=== PATIENT | female | born 1995 | race Two or more races ===

== ENCOUNTER → 2020-06-30 | Outpatient (CLI) | payer OTHER ==
--- NOTE | 2020-06-30 16:02 | KCIC ---
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 Instructions: / History: . COMPARISON STUDY: None. FINDINGS: Lungs: Normal lung volume. No pulmonary mass or consolidation. The tracheobronchial tree and hilar structures are normal. Pleura: No pleural effusion or pneumothorax. Heart and Mediastinum: The cardiomediastinal silhouette is normal. The great vessels of the thorax are normal. Bones and Soft Tissues: The bones and soft tissues are within normal limits. IMPRESSION: No acute cardiopulmonary process. Electronically signed by: Todd Morales MD (06/30/2020 3:59 PM) [id number]
== END ==
LOC: KCIC 11:43
PROVIDERS: ATTEND Family Medicine
DX: R76.11 Nonspecific reaction to tuberculin skin test without active tuberculosis (principal)
CPT/HCPCS: 71045

== ENCOUNTER → 2020-10-26 | Outpatient (CLI) | payer OTHER ==
[~2020-10-26] MED LIST: OXYC-325 PO; PROM25TA10 PO; VENTOLIN HFA18 GM INH; flovent PO
--- NOTE | 2020-10-27 10:58 | NUR ---
Patient swabbed for covid again on 10/26/20. After the swab, the patient told us she tested positive for covid in Aug 2020 with mild symptoms. Patient states the results came from [facility]. Faxed a request for the report on 10/26. No report has come yet. Left a message at the [facility] for results.
== END ==
LOC: LAB 11:10 → MERGE 12:26
PROVIDERS: ATTEND Orthopaedic Surgery
DX: Z01.812 Encounter for preprocedural laboratory examination (principal); U07.1 COVID-19; G56.00 Carpal tunnel syndrome, unspecified upper limb
CPT/HCPCS: U0003

== ENCOUNTER 2020-10-29 06:09 | Day surgery (SDC) | payer OTHER ==
--- NOTE | 2020-10-28 18:59 | PDOC1 ---
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 She has bilateral wrist pain and hand numbness right greater than left. She describes an onset of numbness and tingling in her hands 3 to 4 months ago when she woke up with spontaneous numbness symptoms like her arm was asleep. Symptoms have progressed and are worse with activity such as driving and she still has the nighttime symptoms. She did not have symptoms when she was . She is tried bilateral wrist splints that only helped a little bit. An EMG confirms carpal tunnel syndrome. Past Medical History Pulmonary: Asthma Past Surgical History Past Surgical History: Cholecystectomy Family History Family History: Diabetes, Heart Disease Social History Smoke: No ALCOHOL: occassional Current Medications Current Medications Current Medications Fentanyl Citrate (Fentanyl 2ml Vial) 25 mcg PRN Q5MIN PRN IVP MILD PAIN 1-3; Start 10/29/20 at 06:00; Stop 10/30/20 at 05:59 Fentanyl Citrate (Fentanyl 2ml Vial) 50 mcg PRN Q5MIN PRN IVP MODERATE PAIN 4- 6; Start 10/29/20 at 06:00; Stop 10/30/20 at 05:59 Morphine Sulfate (Morphine Sulfate) 1 mg PRN Q10MIN PRN IVP SEVERE PAIN 7-10; Start 10/29/20 at 06:00; Stop 10/30/20 at 05:59 Ringer's Solution 1,000 ml @ 30 mls/hr Q24H IV ; Start 10/29/20 at 06:00; Stop 10/29/20 at 17:59 Hydromorphone HCl (Dilaudid) 0.5 mg PRN Q10MIN PRN IVP SEVERE PAIN 7-10, 2nd CHOICE; Start 10/29/20 at 06:00; Stop 10/30/20 at 05:59 Prochlorperazine Edisylate (Compazine) 5 mg PACU PRN PRN IVP NAUSEA, MRX1; Start 10/29/20 at 06:00; Stop 10/30/20 at 05:59 Cefazolin Sodium/ Dextrose 50 ml @ 100 mls/hr 1X PREOP PRN IV PRIOR TO PROCEDURE; Start 10/29/20 at 06:00; Stop 10/29/20 at 18:00 Active Scripts Active Reported [flovent] 1 Inh PO PRN BID PRN Ventolin Hfa Inhaler (Albuterol Sulfate) 18 Gm Hfa.aer.ad 2 Puff INH PRN Q4-6HRS PRN Allergies Allergies: Coded Allergies: diphenhydramine (Verified Adverse Reaction, Intermediate, 10/28/20) hypotension hydrocodone (Verified Adverse Reaction, Intermediate, 10/28/20) hallucinations Physical Exam General: Alert, Cooperative HEENT: Atraumatic Lungs: Normal air movement Heart: RRR Abdomen: Soft Extremities: No cyanosis, Normal pulses, Other (The overall alignment of the RIGHT hand is normal. There are no masses. Minimal tenderness except over the median nerve. Light touch sensation is decreased in the thumb index and long finger. Traveling Storekeeper strength is intact for motor strength but subjectively slightly weakened. There is no thenar atrophy. Pulses intact. Phalen's positive. Tinel's positive. Tinel's at the elbow is negative.) Skin: No significant lesion Neuro: Sensation intact Images Images Bilateral upper extremity EMG obtained and personally reviewed. Right median nerve sensory latency 5.4 (normal < 3.8). Right median nerve motor latency 5.8 (normal < 4.5). Left median nerve sensory latency 4.5 (normal < 3.8). Left median nerve motor latency 5.1 (normal < 4.5). VTE Prophylaxis Ordered VTE Prophylaxis Devices: Yes VTE Pharmacological Prophylaxi: No Assessment/Plan Assessment/Plan Her described symptoms and exam correlate with bilateral carpal tunnel syndrome, correlated with her EMG results. We discussed the natural history of the condition as well as the risks, benefits, and alternatives to treatment. Given her failure of more conservative measures with continued symptoms, my recommendation is surgery. Plan for staged, right before left, carpal tunnel release. We discussed the potential risks of infection, neurovascular injury, bleeding, or other potential surgical or anesthetic complications. We also discussed postoperative treatment and expectations, including possible time off work to help with her recovery and minimize risks of infection. All of her questions were answered and she desires to proceed with surgery. She is here to day for elective right carpal tunnel release, presumably under a regional anesthetic. Justifications for Admission Other Justification LAW WALSH MD Oct 28, 2020 18:59
[~2020-10-29] VITALS: Ht 165.1 cm; Wt 93.9 kg
[~2020-10-29 06:09] MED LIST changes: +HYDROmorphone 2 MG/ML VIAL IVP PRN; -OXYC-325 PO; +PROCHLORPERAZINE 10 MG/2 ML VIAL. IVP PRN; -PROM25TA10 PO; +fentaNYL PF VIAL 100 MCG/2 ML VIAL IVP PRN
[2020-10-29] MEDS ORDERED: ONDANSETRON PF 4 MG/2 ML VIAL. ONE (06:37)
[2020-10-29] MEDS ORDERED: LIDOCAINE 2% PF 5 ML VIAL. ONE (06:37)
[2020-10-29] MEDS ORDERED: PROPOFOL 10 MG/ML (20ML) VIAL. IV ONE (06:37)
[2020-10-29] MEDS ORDERED: LIDOCAINE 1% PF 30 ML VIAL. ONE (06:39)
[2020-10-29] MEDS: IV RINGERS,LACTATED 1000ML 1,000 ML IV SCH ×2 (06:51→09:53)
[2020-10-29] MEDS ORDERED: BUPIVACAINE-EPI 0.25% 30 ML VIAL KIT. ONE (07:18)
[2020-10-29] MEDS ORDERED: MIDAZOLAM HCL/PF 2 MG/2 ML VIAL. ONE (07:21)
[2020-10-29] MEDS ORDERED: fentaNYL PF VIAL 100 MCG/2 ML VIAL ONE ×2 (07:21→09:13)
--- NOTE | 2020-10-29 08:20 | PDOC4 ---
Operative Note Operative Note DATE: October 29, 2020 PREOPERATIVE DIAGNOSIS Carpal tunnel syndrome, right upper limb G56.01 POSTOPERATIVE DIAGNOSIS: Carpal tunnel syndrome, right upper limb G56.01 PROCEDURES PERFORMED: right wrist, open carpal tunnel release (neuroplasty of the median nerve at the carpal tunnel, CPT 76321 SURGEON: Law Burton MD COMMISSION BROKER: JONI Stratton ANESTHESIA: General ESTIMATED BLOOD LOSS: 10 mL SPECIMENS: none DRAINS: none COMPLICATIONS: none TOURNIQUET: 6 minutes at 250 mm Hg INDICATIONS FOR PROCEDURE: The patient is a 25-year-old with right hand pain and numbness. EMG confirms carpal tunnel syndrome. The patient and I discussed carpal tunnel release surgery along with the potential risks of infection, neurovascular injury, bleeding, persistent or recurrent carpal tunnel syndrome, wound healing problems, or other surgical or anesthetic complications. All of the patients questions about surgery were answered and they desired to proceed. Written consent was obtained. DESCRIPTION OF OPERATION: The patient was identified in the preoperative holding area. The correct right hand was marked by me. The patient was taken to the operating room and positioned supine on the operating table with the right arm extended on an arm board. A tourniquet was placed on the upper right arm. Preoperative antibiotics were given intravenously. A timeout procedure was performed. The limb was prepared in sterile fashion with ChloraPrep solution and sterile drapes were applied. An Esmarch bandage was used to exsanguinate the limb and the tourniquet was inflated to 250 mmHg. A curvilinear incision was made with a 15 blade scalpel, 2mm ulnar to the thenar crease, using landmarks including the thenar crease, Kaplans cardinal line, the ulnar border of the fingernail of the ring finger, the wrist flexion crease, and the palmaris longus tendon. Care was made not to extend this incision beyond Kaplans cardinal line, so as to avoid arterial injury. Loupe magnification (3.5x extended field) was used throughout to prevent neurovascular injury. Sharp dissection was used through the subcutaneous tissues, and the palmaris longus tendon was retracted toward the thumb. Bipolar electrocautery was used for hemostasis. The transverse carpal ligament was identified and was divided u nder direct vision proximally and distally. Scissor dissection was used proximal to the wrist flexion crease to complete the proximal release of the transverse carpal ligament with the skin elevated away from the dissection. Digital palpation was used proximally and distally, ensuring a complete release. A gentle scissor neuroplasty was now performed along the ulnar aspect of the m edian nerve, releasing dense adhesions and dense synovium. The right median nerve was slightly thinned. Care was made not to injure the motor branch on the radial aspect. Copious saline irrigation was used. The tourniquet was released. Bipolar electrocautery was used for hemostasis. The skin edges were injected with 0.25% bupivacaine with epinephrine. The skin edges were reapproximated with 3-0 Prolene horizontal mattress sutures by my housekeeper/laundry assistant. Needle and sponge counts were correct. Xeroform and a sterile dressing were applied. There were no apparent complications. The patient returned to the recovery room in stable condition. LAW BURTON MD Oct 29, 2020 08:20
[2020-10-29] MEDS ORDERED: SEVOFLURANE 31 TO 60 MINUTES. IH ONE (08:21)
[2020-10-29] MEDS ORDERED: DEXAMETHASONE SOD PHOS 4 MG/ML VIAL ONE (08:21)
[2020-10-29] MEDS ORDERED: oxyCODONE/APAP 5/325 1 TAB TABLET PO PRN (09:00)
[2020-10-29] MEDS: oxyCODONE/APAP 5/325 1 TAB TABLET PO PRN ×2 (09:10→10:10)
[2020-10-29] MEDS: fentaNYL PF VIAL 100 MCG/2 ML VIAL IVP PRN ×4 (09:16→09:35)
[2020-10-29] MEDS ORDERED: OXYC-325 PO (09:36)
[2020-10-29] MEDS ORDERED: PROM25TA10 PO (09:38)
[2020-10-29 10:00] VITALS: BP 113/66
[2020-10-29] MEDS ORDERED: MORPHINE SULFATE 2 MG/ML VIAL. ONE (10:09)
[2020-10-29] MEDS: MORPHINE SULFATE 2 MG/ML VIAL. IVP PRN ×2 (10:11→10:21)
== END 2020-10-29 11:01 | disposition home or self-care (01) ==
LOC: SURG 06:09 → MERGE 07:30 → SURG 11:01
PROVIDERS: ATTEND Orthopaedic Surgery
DX: G56.01 Carpal tunnel syndrome, right upper limb (principal); J45.909 Unspecified asthma, uncomplicated; F32.9 Major depressive disorder, single episode, unspecified; Z90.49 Acquired absence of other specified parts of digestive tract; Z98.890 Other specified postprocedural states; Z79.899 Other long term (current) drug therapy; Z72.89 Other problems related to lifestyle; Z88.8 Allergy status to other drugs, medicaments and biological substances
CPT/HCPCS: 64721; 81025; J0690; J1100; J2250; J2270; J2405; J2704; J3010; J3490